=== PATIENT | female | born 1980 | race Caucasian/White ===

== ENCOUNTER 2019-05-13 20:03 | Emergency (ER) | payer OTHER ==
[~2019-05-13] VITALS: Ht 154.9 cm; Wt 111.6 kg
[~2019-05-13 20:03] MED LIST: ACET-503 PO; [UNRECOGNIZED DRUG - CODE] PO
[2019-05-13 20:13] VITALS: BP 115/60
--- NOTE | 2019-05-13 20:20 | NUR ---
PT AMBULATED TO THE RESTROOM GAVE U/A SPECIMEN.
--- NOTE | 2019-05-13 20:26 | NUR ---
PT TO XRAY BY WHEEL CHAIR
--- NOTE | 2019-05-13 20:56 | NUR ---
PT AMBULATED TO BED #04
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
--- NOTE | 2019-05-13 21:19 | NUR ---
Dr. Page examining patient.
[2019-05-13] MEDS ORDERED: IBUPROFEN 600 MG TAB PO ONE (21:25)
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
[2019-05-13 21:40] VITALS: BP 130/82
--- NOTE | 2019-05-13 21:40 | NUR ---
Patient discharged with v/s stable. Written and verbal after care instructions given and explained. Patient alert, oriented and verbalized understanding of instructions. Ambulatory with steady gait. All questions addressed prior to discharge. ID band removed. Patient advised to follow up with PMD. Rx of Naprosyn given. Patient educated on indication of medication including possible reaction and side effects. Opportunity to ask questions provided and answered. Addendum: 05/13/19 at 2315 by [facility] PT DISCHARGED BY DR. WARD.
== END 2019-05-13 21:40 | disposition home or self-care (01) ==
LOC: MED 20:03
DX: S63.502A Unspecified sprain of left wrist, initial encounter (principal); Z79.899 Other long term (current) drug therapy; W19.XXXA Unspecified fall, initial encounter; Y93.89 Activity, other specified; Y92.89 Other specified places as the place of occurrence of the external cause; Y99.8 Other external cause status
CPT/HCPCS: 73090; 73110; 99283

== ENCOUNTER 2023-06-12 15:41 | Emergency (ER) | payer OTHER ==
[~2023-06-12] VITALS: Ht 162.6 cm; Wt 72.6 kg
[~2023-06-12 15:41] MED LIST changes: +ACET-2198 PO; -[UNRECOGNIZED DRUG - CODE] PO
[2023-06-12 16:44] VITALS: BP 129/89; PULSE 80; RESP 18; TEMP 98; O2SAT 98
[2023-06-12 18:55] LABS: APPEARANCE,URINE CLEAR (CLEAR); BILIRUBIN,URINE NEGATIVE (NEGATIVE); BLOOD, URINE 3+ (NEGATIVE); COLOR,URINE YELLOW (YELLOW); LEUKOCYTE ESTERASE ,URINE NEGATIVE (NEGATIVE); NITRITE, URINE NEGATIVE (NEGATIVE); PROTEIN,URINE NEGATIVE (NEGATIVE); UGLUCOSE NEGATIVE (NEGATIVE); UROBILINOGEN,URINE 0.2 EU/dL (0.2 - 1)
[2023-06-12 19:06] LABS: BACTERIA,URINE 10-30 (MOD) /HPF (None Seen); SQUAMOUS EPITHELIAL CELL,UR 4-10 (MOD) /LPF (0-3 (FEW)); WBC,URINE 0-5 /HPF (0-5)
[2023-06-12] MEDS ORDERED: ONDANSETRON 4 MG ODT PO ONE (20:00)
[2023-06-12] MEDS ORDERED: KETOROLAC 60 MG/2 ML VIAL IM ONE ×2 (20:00→21:11)
[2023-06-12] MEDS ORDERED: ONDA8TAB87 PO (20:14)
[2023-06-12] MEDS ORDERED: IBUP-2213 PO (20:14)
[2023-06-12] MEDS ORDERED: OMEP40EC23 PO (20:14)
[2023-06-12] MEDS ORDERED: ONDANSETRON 4 MG TAB ONE (21:11)
[2023-06-12] MEDS ORDERED: ACET-503 PO (21:53)
[2023-06-12] MEDS ORDERED: MORPHINE SULFATE 4 MG/ML SYR IM ONE (21:55)
== END 2023-06-12 22:30 | disposition home or self-care (01) ==
LOC: MED 15:41
DX: R10.12 Left upper quadrant pain (principal); R11.2 Nausea with vomiting, unspecified; Z79.899 Other long term (current) drug therapy
CPT/HCPCS: 81001; 81025; 87086; 96372; 99284; J1885; J2270; Q0162